=== PATIENT | male | born 1990 | race Caucasian/White ===

== ENCOUNTER 2017-11-23 12:36 | Emergency (ER) | payer BC ==
[~2017-11-23] VITALS: Ht 177.8 cm; Wt 147.0 kg
[2017-11-23 14:59] LABS: HEMATOCRIT 43.5 % (38.0-50.0); HEMOGLOBIN 14.2 G/DL (12.5-16.6); MCH 26.3 PG (29.0-34.0); MCHC 32.6 G/DL (30.0-36.0); MCV 80.7 FL (86-99); PLATELET COUNT 244 K/uL (156-360); RBC DIS.WIDTH-CV 13.2 % (11.8-14.6); RBC DIS.WIDTH-SD 38.3 % (39-53); RED BLOOD COUNT 5.39 M/uL (4.00-5.50); WHITE BLOOD COUNT 6.2 K/uL (4.1-10.2)
[2017-11-23 15:07] LABS: CHLORIDE 108 mEq/L (99-109); SODIUM 139 mEq/L (136-147)
[2017-11-23 15:08] LABS: GLUCOSE 95 mg/dL (70-99)
[2017-11-23 15:12] LABS: CREATININE 0.8 mg/dL (0.6-1.3); GFR ESTIMATE (CALCULATED) > 59 mL/min/ (58.99-99999)
[2017-11-23 15:13] LABS: UREA NITROGEN (BUN) 10 mg/dL (9-23)
[2017-11-23 15:19] LABS: TROP-I INTERPRETATION NEGATIVE; TROPONIN-I < 0.01 ng/mL (0.0-0.30)
[2017-11-23] MEDS ORDERED: PREDNISONE20 MG PO (17:02)
[2017-11-23] MEDS ORDERED: VENTOLIN HFA18 GM IH (17:02)
[2017-11-23] MEDS ORDERED: ZITHROMAX Z-PA250 MG PO (17:02)
[2017-11-23 17:29] VITALS: BP 149/97
== END 2017-11-23 17:34 | disposition home or self-care (01) ==
LOC: EME 12:36
PROVIDERS: Nurse Practitioner Family
DX: J20.9 Acute bronchitis, unspecified (principal); R50.9 Fever, unspecified; R00.0 Tachycardia, unspecified; F17.200 Nicotine dependence, unspecified, uncomplicated; Z98.890 Other specified postprocedural states
CPT/HCPCS: 71046; 80048; 84484; 85027; 85379; 93005; 94640

== ENCOUNTER 2017-12-24 17:14 | Emergency (ER) | payer BC ==
[~2017-12-24] VITALS: Ht 177.8 cm; Wt 148.5 kg
[~2017-12-24 17:14] MED LIST: PREDNISONE20 MG PO; VENTOLIN HFA18 GM IH; ZITHROMAX Z-PA250 MG PO
[2017-12-24 18:05] LABS: HEMATOCRIT 40.6 % (38.0-50.0); HEMOGLOBIN 13.4 G/DL (12.5-16.6); MCH 26.8 PG (29.0-34.0); MCV 81.2 FL (86-99); PLATELET COUNT 303 K/uL (156-360); RBC DIS.WIDTH-CV 13.2 % (11.8-14.6); RBC DIS.WIDTH-SD 38.9 % (39-53); WHITE BLOOD COUNT 8.3 K/uL (4.1-10.2)
[2017-12-24 18:26] LABS: ALBUMIN 4.1 g/dL (3.2-4.8); CHLORIDE 107 mEq/L (99-109); POTASSIUM 3.9 mEq/L (3.7-5.4); SODIUM 141 mEq/L (136-147)
[2017-12-24 18:28] LABS: GLUCOSE 99 mg/dL (70-99); TOTAL PROTEIN 7.3 g/dL (6.4-8.3)
[2017-12-24 18:30] LABS: TOTAL BILIRUBIN 0.3 mg/dL (0.0-1.0)
[2017-12-24 18:32] LABS: ALKALINE PHOSPHATASE 71 IU/L (3-129); CREATININE 0.7 mg/dL (0.6-1.3); GFR ESTIMATE (CALCULATED) > 59 mL/min/ (58.99-99999)
[2017-12-24 18:34] LABS: AST (GOT) 14 IU/L (2-34); UREA NITROGEN (BUN) 12 mg/dL (9-23)
[2017-12-24 18:35] LABS: ALT (GPT) 20 IU/L (3-49)
[2017-12-24 20:09] LABS: APPEARANCE CLEAR ((CLEAR)); BILIRUBIN NEGATIVE; BLOOD NEGATIVE; COLOR YELLOW ((YELLOW)); GLUCOSE (STRIP) NEGATIVE; KETONES NEGATIVE; LEUKOCYTES NEGATIVE; NITRITE NEGATIVE; PROTEIN (STRIP) NEGATIVE; SPECIFIC GRAVITY 1.027 (1.000-1.030); UCUL ADDED? NO; UROBILINOGEN 0.2 MG/DL (0.2-1.0)
[2017-12-24 20:10] LABS: LIPASE 21 U/L (1.0-51.0); TROP-I INTERPRETATION NEGATIVE; TROPONIN-I < 0.01 ng/mL (0.0-0.30)
[2017-12-24] MEDS ORDERED: PEPCID20 MG PO (21:13)
[2017-12-24 21:24] VITALS: BP 156/123
== END 2017-12-24 21:24 | disposition home or self-care (01) ==
LOC: EME 17:14
DX: R10.13 Epigastric pain (principal); F17.200 Nicotine dependence, unspecified, uncomplicated
CPT/HCPCS: 80053; 81003; 83690; 84484; 85027; 99281; 99284

== ENCOUNTER 2018-03-06 19:31 | Emergency (ER) | payer BC ==
[~2018-03-06] VITALS: Ht 177.8 cm; Wt 147.6 kg
[~2018-03-06 19:31] MED LIST changes: +PEPCID20 MG PO
[2018-03-06 20:18] VITALS: BP 148/91
== END 2018-03-06 20:19 | disposition home or self-care (01) ==
LOC: EME 19:31
DX: K42.9 Umbilical hernia without obstruction or gangrene (principal); I10 Essential (primary) hypertension; E66.01 Morbid (severe) obesity due to excess calories; Z68.42 Body mass index [BMI] 45.0-49.9, adult; F17.200 Nicotine dependence, unspecified, uncomplicated
CPT/HCPCS: 99281; 99283

== ENCOUNTER 2018-03-26 08:07 | Day surgery (SDC) | payer BC ==
[~2018-03-26] VITALS: Ht 180.3 cm; Wt 147.0 kg
[~2018-03-26 08:07] MED LIST changes: +PRINIVIL20 MG PO
[2018-03-26 08:27] VITALS: BP 141/88
[2018-03-26] MEDS ORDERED: NORCO 5/3251 TABLET PO (10:53)
[2018-03-26 12:15] VITALS: BP 140/87
[2018-03-26 13:05] VITALS: BP 132/91
== END 2018-03-26 13:10 | disposition home or self-care (01) ==
LOC: SDC 08:07
PROC: 0WUF4JZ Supplement Abdominal Wall with Synthetic Substitute, Percutaneous Endoscopic Approach (ICD-10-PCS; principal; 2018-03-26)
DX: K42.9 Umbilical hernia without obstruction or gangrene (principal); E66.01 Morbid (severe) obesity due to excess calories; Z68.42 Body mass index [BMI] 45.0-49.9, adult; I10 Essential (primary) hypertension; R94.31 Abnormal electrocardiogram [ECG] [EKG]; F17.200 Nicotine dependence, unspecified, uncomplicated
CPT/HCPCS: 93005; C1781; J0131; J0330; J0690; J1100; J1170; J1885; J2250; J2405; J2710; J3010; J7643; S0020